=== PATIENT | female | born 1995 | race Hispanic/Latino ===

== ENCOUNTER 2019-09-28 22:14 | Emergency (ER) | payer MEDICAID, OTHER ==
[2019-09-28 22:47] LABS: Bacteria/HPF None Seen HPF (None Seen); Bilirubin Negative (Negative); Blood, Urine 2+ (Negative); Clarity Clear (Clear); Glucose, Urine (Dipstick) Normal (Negative); Leukocyte 25 Leu/uL (Negative); Mucous/LPF 1+ LPF (<2+); Nitrite Negative (Negative); Protein, Urine (Dipstick) Negative (Neg-Trace); Squamous Epithelial 0-3 HPF (0-3); Urobilinogen Normal mg/dL (Less than 2); WBC/HPF 0-3 HPF (0-3)
[2019-09-28 22:48] LABS: Pregnancy Test - Urine (BHCG) POSITIVE (Negative); Pregu Control Background? CLEAR/WHITE (CLR/WHITE); Pregu Control Bar Appear? YES (CONTROL BAR); Specific Gravity 1.023 (1.002-1.036)
[2019-09-28 23:25] LABS: #Basophils 0.1 thou/uL (0.0-0.2); #Eosinphils 0.3 thou/uL (0.0-0.7); #Lymphocytes 2.8 thou/uL (1.20-3.40); #Monocytes 0.7 thou/uL (0.11-0.59); #Neutrophils 9.1 thou/uL (1.40-6.50); %Basophils 0.7 % (0.0-1.0); %Lymphocytes 21.7 % (21.0-51.0); %Monocytes 5.5 % (0.0-10.0); %Neutrophils 70.2 % (42.0-75.0); Hemoglobin 12.1 g/dL (12.0-16.0); Mean Corpuscular HGB CONC 31.7 g/dL (32.0-36.0); Mean Corpuscular Hemoglobin 25.9 pg (27.0-31.0); Mean Corpuscular Volume 81.7 fL (78.0-98.0); Mean Platelet Volume 8.5 fL (7.4-10.4); Platelet Count 304 thou/uL (130-400); Red Blood Cell (RBC) Count 4.67 mill/uL (4.20-5.40)
--- NOTE | 2019-09-29 08:03 | ULT ---
OB AND PELVIC ULTRASOUND: COMPARISON: None. HISTORY: female with vaginal spotting. TECHNIQUE: Multiplanar, tapia scale, and color Doppler images were obtained in a transabdominal pelvic ultrasound . Spectral analysis of the Doppler waveforms and ovaries was performed. FINDINGS: There is a single live intrauterine with heart rate of 126 b.p.m. A yolk sac and brooke e are able to be seen. Toccopola-rump length of the pole is 0.49 cm which estimates gestational ag e of 6 weeks 2 days. No free fluid is seen in the pelvis. Both ovaries are normal in size and appearance and demonstrate normal internal flow. IMPRESSION: Single live intrauterine with estimated age of 6 weeks 2 days. POS: EAA
== END 2019-09-29 01:10 | disposition home or self-care (01) ==
LOC: ERS 22:14
DX: O20.0 Threatened abortion (principal); O99.351 Diseases of the nervous system complicating pregnancy, first trimester; G71.00 Muscular dystrophy, unspecified; Z3A.12 12 weeks gestation of pregnancy
CPT/HCPCS: 36415; 76856; 81003; 81015; 81025; 84702; 85025; 86900; 86901

== ENCOUNTER 2019-11-02 20:35 | Emergency (ER) | payer OTHER ==
[2019-11-02] MEDS ORDERED: Ondansetron PF 4 MG/2 ML Vial ONE (21:12)
--- NOTE | 2019-11-02 21:20 | RAD ---
PORTABLE CHEST: Date: 11-02-2019 Provided Clinical History: Fever FINDINGS: Comparison 02-09-14. Cardiac and mediastinal silhouette is within normal limits. No focal consolidation, pleural fluid, or pneumothorax apparent. IMPRESSION: No evidence for an acute cardiopulmonary process. POS: ISABEL
[2019-11-02 21:47] LABS: #Lymphocytes 0.6 thou/uL (1.20-3.40); #Monocytes 0.5 thou/uL (0.11-0.59); #Neutrophils 7.2 thou/uL (1.40-6.50); %Basophils 0.5 % (0.0-1.0); %Eosinophils 0.1 % (0.0-10.0); %Lymphocytes 6.9 % (21.0-51.0); %Monocytes 6.2 % (0.0-10.0); %Neutrophils 86.3 % (42.0-75.0); Hemoglobin 12.7 g/dL (12.0-16.0); Mean Corpuscular HGB CONC 33.7 g/dL (32.0-36.0); Mean Corpuscular Hemoglobin 26.8 pg (27.0-31.0); Mean Corpuscular Volume 79.6 fL (78.0-98.0); Mean Platelet Volume 9.4 fL (7.4-10.4); Platelet Count 246 thou/uL (130-400); RBC Distribution Width 14.1 % (11.5-14.5); Red Blood Cell (RBC) Count 4.73 mill/uL (4.20-5.40); White Blood Cell (WBC) Count 8.3 thou/uL (4.8-10.8)
[2019-11-02 21:51] LABS: Bacteria/HPF None Seen HPF (None Seen); Bilirubin Negative (Negative); Blood, Urine Negative (Negative); Clarity Clear (Clear); Glucose, Urine (Dipstick) Normal (Negative); Leukocyte 250 Leu/uL (Negative); Nitrite Negative (Negative); Protein, Urine (Dipstick) 30 mg/dL (Neg-Trace); RBC/HPF 0-3 HPF (0-3); Squamous Epithelial 0-3 HPF (0-3)
[2019-11-02] MEDS ORDERED: cefTRIAXone\\ROCEPHIN 2 GM VIAL ONE (22:13)
[2019-11-02 22:19] LABS: ALT (SGPT) 81 U/L (8-55); AST (SGOT) 115 U/L (5-34); Albumin 4.1 g/dL (3.5-5.0); Alkaline Phosphatase 58 U/L (40-110); Anion Gap 18 mmol/L (10-20); BUN (Urea Nitrogen) 4 mg/dL (7.0-18.7); Bilirubin, Total 0.2 mg/dL (0.2-1.2); Calc. Creatinine Clearance 0 mL/min (70-130); Calcium 9.7 mg/dL (7.8-10.44); Carbon Dioxide 19 mmol/L (22-29); Chloride 102 mmol/L (98-107); Estimated GFR-MDRD Greater than 90; Globulin 3.9 g/dL (2.4-3.5); Glucose 91 mg/dL (70-105); Lipase 15 U/L (8-78); Potassium 4.2 mmol/L (3.5-5.1); Sodium 135 mmol/L (136-145)
[2019-11-03 14:02] LABS: SARS-CoV-2 MS2 Positive; SARS-CoV-2 N Gene Positive; SARS-CoV-2 S Gene Positive; SARS-CoV-2 orf1ab Positive
== END 2019-11-02 23:49 | disposition home or self-care (01) ==
LOC: ERS 20:35
DX: O98.511 Other viral diseases complicating pregnancy, first trimester (principal); U07.1 COVID-19; O99.281 Endocrine, nutritional and metabolic diseases complicating pregnancy, first trimester; E86.0 Dehydration; O23.41 Unspecified infection of urinary tract in pregnancy, first trimester; Z3A.10 10 weeks gestation of pregnancy
CPT/HCPCS: 71045; 80053; 81003; 81015; 83690; 85025; 87635; 93005; 96361; 96365; 96375; J0696; J2405; U0003

== ENCOUNTER 2019-11-08 13:17 | Emergency (ER) | payer OTHER ==
[2019-11-08] MEDS ORDERED: Ondansetron PF 4 MG/2 ML Vial ONE (13:24)
[2019-11-08] MEDS ORDERED: Metoclopramide HCl 10 MG/2 ML VIAL ONE (13:31)
[2019-11-08] MEDS ORDERED: diphenhydrAMINE 50 MG/ML VIAL ONE (13:31)
[2019-11-08 14:47] LABS: #Lymphocytes 1.4 thou/uL (1.20-3.40); #Monocytes 0.4 thou/uL (0.11-0.59); #Neutrophils 4.9 thou/uL (1.40-6.50); %Basophils 0.2 % (0.0-1.0); %Eosinophils 0.4 % (0.0-10.0); %Lymphocytes 20.9 % (21.0-51.0); %Monocytes 6.3 % (0.0-10.0); %Neutrophils 72.2 % (42.0-75.0); Hemoglobin 13.1 g/dL (12.0-16.0); Mean Corpuscular HGB CONC 34.9 g/dL (32.0-36.0); Mean Corpuscular Hemoglobin 27.7 pg (27.0-31.0); Mean Corpuscular Volume 79.3 fL (78.0-98.0); Mean Platelet Volume 9.1 fL (7.4-10.4); Platelet Count 246 thou/uL (130-400); RBC Distribution Width 13.8 % (11.5-14.5); Red Blood Cell (RBC) Count 4.72 mill/uL (4.20-5.40); White Blood Cell (WBC) Count 6.7 thou/uL (4.8-10.8)
[2019-11-08] MEDS ORDERED: Metoclopramide HCl 10 MG TAB ONE (15:08)
[2019-11-08 15:12] LABS: Calcium 9.5 mg/dL (7.8-10.44); Chloride 104 mmol/L (98-107); Potassium 4.2 mmol/L (3.5-5.1); Sodium 135 mmol/L (136-145)
[2019-11-08 15:13] LABS: Globulin 3.9 g/dL (2.4-3.5); Glucose 74 mg/dL (70-105); Protein, Total 7.9 g/dL (6.0-8.3)
[2019-11-08 15:14] LABS: Anion Gap 19 mmol/L (10-20); Carbon Dioxide 16 mmol/L (22-29)
[2019-11-08 15:15] LABS: Bilirubin, Total 0.3 mg/dL (0.2-1.2)
[2019-11-08 15:16] LABS: Alkaline Phosphatase 61 U/L (40-110); Calc. Creatinine Clearance 0 mL/min (70-130); Estimated GFR-MDRD Greater than 90
[2019-11-08 15:17] LABS: BUN (Urea Nitrogen) 5 mg/dL (7.0-18.7)
[2019-11-08 15:18] LABS: AST (SGOT) 88 U/L (5-34)
[2019-11-08 15:19] LABS: ALT (SGPT) 100 U/L (8-55)
[2019-11-08 15:50] LABS: Bacteria/HPF None Seen HPF (None Seen); Bilirubin Negative (Negative); Blood, Urine Negative (Negative); Clarity Clear (Clear); Glucose, Urine (Dipstick) Normal (Negative); Leukocyte 25 Leu/uL (Negative); Mucous/LPF 2+ LPF (<2+); Nitrite Negative (Negative); Protein, Urine (Dipstick) 20 mg/dL (Neg-Trace); RBC/HPF 0-3 HPF (0-3); Squamous Epithelial 0-3 HPF (0-3); Urobilinogen Normal mg/dL (Less than 2); WBC/HPF 0-3 HPF (0-3)
== END 2019-11-08 15:55 | disposition home or self-care (01) ==
LOC: ERS 13:17
DX: O98.511 Other viral diseases complicating pregnancy, first trimester (principal); U07.1 COVID-19; Z3A.11 11 weeks gestation of pregnancy
CPT/HCPCS: 36415; 80053; 81003; 81015; 85025; J1200; J2405; J2765

== ENCOUNTER 2019-11-24 14:08 | Inpatient (IN) | payer OTHER ==
[2019-11-24 15:38] LABS: Hemoglobin 14.3 g/dL (12.0-16.0); Mean Corpuscular HGB CONC 35.5 g/dL (32.0-36.0); Mean Corpuscular Hemoglobin 27.4 pg (27.0-31.0); Platelet Count 347 thou/uL (130-400); RBC Distribution Width 13.8 % (11.5-14.5); Red Blood Cell (RBC) Count 5.23 mill/uL (4.20-5.40); White Blood Cell (WBC) Count 16.2 thou/uL (4.8-10.8)
[2019-11-24 15:49] LABS: Band 5 % (5-11); Lymphocytes 5 % (21-51); MDiff Complete? YES; Monocytes 5 % (0-10); Neutrophil 85 % (42-75); Platelet Morphology Comment Appears Adequate; RBC Morphology Normal
[2019-11-24 16:02] LABS: ALT (SGPT) 276 U/L (8-55); AST (SGOT) 166 U/L (5-34); Albumin 4.4 g/dL (3.5-5.0); Alkaline Phosphatase 82 U/L (40-110); Anion Gap 23 mmol/L (10-20); BUN (Urea Nitrogen) 7 mg/dL (7.0-18.7); Bilirubin, Total 1.2 mg/dL (0.2-1.2); Calc. Creatinine Clearance 0 mL/min (70-130); Calcium 10.4 mg/dL (7.8-10.44); Carbon Dioxide 12 mmol/L (22-29); Chloride 102 mmol/L (98-107); Estimated GFR-MDRD Greater than 90; Globulin 4.6 g/dL (2.4-3.5); Glucose 132 mg/dL (70-105); Potassium 3.1 mmol/L (3.5-5.1); Sodium 134 mmol/L (136-145)
[2019-11-24 16:41] LABS: Bacteria/HPF None Seen HPF (None Seen); Bilirubin 1+ (Negative); Blood, Urine Negative (Negative); Clarity Clear (Clear); Glucose, Urine (Dipstick) Normal (Negative); Ketone, Urine Greater than 150 mg/dL (Negative); Leukocyte Negative Leu/uL (Negative); Nitrite Negative (Negative); Protein, Urine (Dipstick) 200 mg/dL (Neg-Trace); RBC/HPF 0-3 HPF (0-3); Squamous Epithelial 0-3 HPF (0-3)
--- NOTE | 2019-11-24 16:59 | ULT ---
Exam: Limited OB ultrasound HISTORY: Nausea and vomiting. COVID positive patient. COMPARISON: 11/17/2019 FINDINGS: Single intrauterine gestation. position: Transverse Placenta: Posterior. Placenta is marginal and approximates the inner cervical os. Cervix: 2.6 cm, previously measuring 4.5 cm heart tones: 173 bpm biometry: BPD 2.73 cm, 14 weeks 6 days Head circumference 10.31 cm, 14 weeks 6 days Abdominal circumference 18.74 cm, 15 weeks 0 days Femur length 1.52 cm, 14 weeks 3 days Average age by sonography is 14 weeks 5 days. Estimated Limited delivery date is 05/19/2020. Appropriat e interval growth. IMPRESSION: 1. Single gestation with heart tones 2. Average age by sonography is 14 weeks 5 days. Appropriate interval growth 3. Cervix appears to be short, measuring 2.6 cm. Placental location appear to be marginal. Short-term follow-up imaging is recommended
[2019-11-24] MEDS ORDERED: Metoclopramide HCl 10 MG/2 ML VIAL IVP PRN (17:40)
[2019-11-24] MEDS ORDERED: Ondansetron HCl/PF 8 MG in Sodium Chloride 0.9% 50 ML IVPB SCH (17:45)
[2019-11-24] MEDS ORDERED: Multivitamins, Adult 10 ML, Folic Acid 1 MG, Thiamine HCl 100 MG in Dextrose 5 %-0.45 %... IV SCH (17:45)
--- NOTE | 2019-11-24 18:24 | HP ---
TIME: The time is roughly 1745. LOCATION: Patient is in the ER currently. CHIEF COMPLAINT: Persistent nausea, vomiting, COVID positive. This is a patient of Dr. Arriaza. HISTORY OF PRESENT ILLNESS: This is a 24-year-old, G2, P1 with a history of a previous who is between 14 and 15 weeks , who was actually admitted on November 16, 2019, with what looks like similar symptoms. At that time by review of the notes, it looks like she was started on pyridoxine and doxylamine, which was added to that regimen. She was also given replacement of her potassium at that time. We also had replaced her magnesium at that time. It looks like on 11/18/2019, patient was on Zofran and Reglan and also started doxylamine and vitamin B6. She was released, but now returns back with persistent nausea and vomiting. It is important to note that she does have a history of being COVID positive on November that was here at this hospital. I was called by Jaime, the nurse practitioner in the ER, as I am currently in Labor and Delivery and cannot go see the patient. I cannot see the patient due to the active patient needs at this time here in Labor and Delivery. Patient presented now with persistent nausea, vomiting, and came for evaluation. PAST MEDICAL HISTORY: Otherwise, unremarkable, except for the COVID history. OB HISTORY: She had a in the past. ALLERGIES: NONE. PHYSICAL EXAMINATION: According to Jaime in the ER, heart rate was initially 120s but is now down to the 90s with IV hydration. Blood pressures are okay. She is afebrile. LABORATORIES: Today show white blood cell count of 16.2, which is thought to be reactive. Her sodium is 134. Her potassium was 3.1, which is a little bit low. Her creatinine is 0.6. Her AST and ALT were elevated with a 166 AST and a 276 ALT. She did have a urine done today which was a clean-catch, which showed greater than 150 ketones, negative blood, negative nitrite, and no bacteria seen. On review of her 11/16/2019 admission, her AST and ALT on 11/18/2019 were 35 AST and 70 ALT, so her liver function tests have deteriorated slightly over these last days. According to Jaime, she had an ultrasound done today in the ER, which showed no gross abnormalities and positive heart tones in the sono that showed that she was 14 weeks and 5 days, which is size appropriate. ASSESSMENT: This is a 24-year-old, G2, P1 with a previous history who is about 14 to 15 weeks who was COVID positive on November 15 with persistent hyperemesis versus COVID GI symptoms. She is in no acute distress. PLAN: 1. I have discussed the case with Dr. Arriaza and this is a direct admission to Dr. Arriaza. 2. I have ordered a repeat CBC and a repeat CMP for the morning, which will be done at the a.m. run. I have also ordered 40 mEq of K-Dur and I will her give that b.i.d. as well. I have ordered a liter of banana bag to be given to her and then after that, we will change to lactated Ringer. 3. Again, I have not seen the patient because I am in Labor and Delivery attending to other patient issues. This is a courtesy H and P and Dr. Arriaza will resume care at this time. For antinausea medication, I have given Zofran and Reglan as per orders and I will also order her doxylamine at 10 mg b.i.d. I have also ordered another CBC for the a.m. run. I believe that the white blood cell count is reactive due to the dehydration status. Job ID: [id number]
[2019-11-24] MEDS ORDERED: Pantoprazole 40 MG VIAL ONE (18:25)
[2019-11-24 18:58] LABS: HBCM Index 0.15 S/CO (0-0.79); Hep A IgM AB Non-Reactive (NonReactive); Hep A IgM S/CO 0.16 S/CO (0-0.79); Hep B Surf Ag Non-Reactive S/CO (NonReactive); Hep C IgG Ab Non-Reactive (NonReactive); Hep C Index 0.09 S/CO (0-0.79); Hepatitis B Core IgM Abs Non-Reactive (NonReactive)
[2019-11-24] MEDS: Doxylamine 25 MG TAB PO SCH (20:32)
[2019-11-25] MEDS: Lactated Ringer's 1,000 ML IV SCH ×2 (03:55)
[2019-11-25 06:16] LABS: #Eosinphils 0.2 thou/uL (0.0-0.7); #Lymphocytes 2.5 thou/uL (1.20-3.40); #Monocytes 1.4 thou/uL (0.11-0.59); #Neutrophils 7.5 thou/uL (1.40-6.50); %Basophils 0.3 % (0.0-1.0); %Eosinophils 1.4 % (0.0-10.0); %Lymphocytes 21.3 % (21.0-51.0); %Monocytes 11.7 % (0.0-10.0); %Neutrophils 65.3 % (42.0-75.0); Hemoglobin 11.6 g/dL (12.0-16.0); Mean Corpuscular Hemoglobin 27.3 pg (27.0-31.0); Mean Corpuscular Volume 77.9 fL (78.0-98.0); Mean Platelet Volume 9.4 fL (7.4-10.4); Platelet Count 259 thou/uL (130-400); RBC Distribution Width 13.7 % (11.5-14.5); Red Blood Cell (RBC) Count 4.24 mill/uL (4.20-5.40); White Blood Cell (WBC) Count 11.5 thou/uL (4.8-10.8)
[2019-11-25 06:37] LABS: ALT (SGPT) 251 U/L (8-55); AST (SGOT) 142 U/L (5-34); Albumin 3.5 g/dL (3.5-5.0); Alkaline Phosphatase 64 U/L (40-110); Anion Gap 14 mmol/L (10-20); BUN (Urea Nitrogen) 4 mg/dL (7.0-18.7); Bilirubin, Total 1.8 mg/dL (0.2-1.2); Calc. Creatinine Clearance 221 mL/min (70-130); Carbon Dioxide 15 mmol/L (22-29); Chloride 106 mmol/L (98-107); Estimated GFR-MDRD Greater than 90; Globulin 3.1 g/dL (2.4-3.5); Glucose 99 mg/dL (70-105); Potassium 2.2 mmol/L (3.5-5.1); Protein, Total 6.6 g/dL (6.0-8.3); Sodium 133 mmol/L (136-145)
--- NOTE | 2019-11-25 06:49 | PDOC.EVN ---
Event Note - Event Note Event Note: NOted K of 2.2...D/W RN Give KDur now and again this pm. Re check K at [address] [facility]
[2019-11-25] MEDS: Potassium Chloride 20 MEQ TAB PO SCH ×2 (08:05→17:08)
[2019-11-25] MEDS: Doxylamine 25 MG TAB PO SCH ×3 (08:06→21:25)
[2019-11-25] MEDS ORDERED: NS 0.9% w/ 40 MEQ KCL 1,000 ML IV SCH (08:30)
[2019-11-25] MEDS ORDERED: Potassium Chloride 10 MEQ in Premix Bag 1 BAG IVPB SCH ×3 (08:30→17:30)
[2019-11-25] MEDS ORDERED: pyridOXINE 50 MG (B6) TAB PO SCH (09:00)
[2019-11-25 11:35] LABS: Anion Gap 14 mmol/L (10-20); BUN (Urea Nitrogen) 4 mg/dL (7.0-18.7); Calc. Creatinine Clearance 225 mL/min (70-130); Calcium 9.2 mg/dL (7.8-10.44); Carbon Dioxide 16 mmol/L (22-29); Chloride 107 mmol/L (98-107); Estimated GFR-MDRD Greater than 90; Glucose 112 mg/dL (70-105); Sodium 134 mmol/L (136-145)
[2019-11-25 11:42] LABS: Potassium 2.6 mmol/L (3.5-5.1)
[2019-11-25] MEDS: Metoclopramide HCl 10 MG/2 ML VIAL IVP SCH ×2 (14:20→20:22)
[2019-11-25] MEDS: pyridOXINE 50 MG (B6) TAB PO SCH ×2 (14:22→21:25)
[2019-11-25 14:37] VITALS: BMI 38.3
--- NOTE | 2019-11-25 14:50 | ULT ---
Exam: Limited pelvic ultrasound HISTORY: Evaluate cervical length COMPARISON: 11/24/2019 FINDINGS: Single intrauterine gestation. heart tones: 141 bpm Cervical length: 3.7-3.9 cm IMPRESSION: Cervical length is 3.7-3.9 cm
[2019-11-25 16:35] LABS: Anion Gap 12 mmol/L (10-20); BUN (Urea Nitrogen) Less than 4 mg/dL (7.0-18.7); Calc. Creatinine Clearance 221 mL/min (70-130); Calcium 9.3 mg/dL (7.8-10.44); Carbon Dioxide 17 mmol/L (22-29); Chloride 108 mmol/L (98-107); Estimated GFR-MDRD Greater than 90; Glucose 124 mg/dL (70-105); Sodium 134 mmol/L (136-145)
[2019-11-25 16:41] LABS: Potassium 2.7 mmol/L (3.5-5.1)
[2019-11-25] MEDS: NS 0.9% w/ 40 MEQ KCL 1,000 ML IV SCH (17:35)
[2019-11-25 18:57] LABS: ALT (SGPT) 242 U/L (8-55); AST (SGOT) 124 U/L (5-34); Albumin 3.4 g/dL (3.5-5.0); Alkaline Phosphatase 65 U/L (40-110); Anion Gap 14 mmol/L (10-20); BUN (Urea Nitrogen) Less than 4 mg/dL (7.0-18.7); Calc. Creatinine Clearance 213 mL/min (70-130); Calcium 9.3 mg/dL (7.8-10.44); Carbon Dioxide 15 mmol/L (22-29); Chloride 108 mmol/L (98-107); Estimated GFR-MDRD Greater than 90; Globulin 3.1 g/dL (2.4-3.5); Glucose 124 mg/dL (70-105); Protein, Total 6.5 g/dL (6.0-8.3); Sodium 134 mmol/L (136-145)
[2019-11-25 19:01] LABS: Potassium 2.8 mmol/L (3.5-5.1)
[2019-11-25] MEDS: Potassium Chloride 10 MEQ in Premix Bag 1 BAG IVPB SCH (21:27)
[2019-11-26] MEDS: Potassium Chloride 10 MEQ in Premix Bag 1 BAG IVPB SCH (02:53)
[2019-11-26] MEDS: NS 0.9% w/ 40 MEQ KCL 1,000 ML IV SCH ×4 (02:54→21:46)
[2019-11-26] MEDS: Metoclopramide HCl 10 MG/2 ML VIAL IVP SCH ×2 (03:00→07:51)
[2019-11-26 06:11] LABS: ALT (SGPT) 203 U/L (8-55); AST (SGOT) 87 U/L (5-34); Albumin 3.2 g/dL (3.5-5.0); Alkaline Phosphatase 65 U/L (40-110); Anion Gap 10 mmol/L (10-20); BUN (Urea Nitrogen) Less than 4 mg/dL (7.0-18.7); Bilirubin, Total 0.5 mg/dL (0.2-1.2); Calc. Creatinine Clearance 225 mL/min (70-130); Calcium 8.9 mg/dL (7.8-10.44); Carbon Dioxide 18 mmol/L (22-29); Chloride 111 mmol/L (98-107); Estimated GFR-MDRD Greater than 90; Globulin 2.8 g/dL (2.4-3.5); Glucose 107 mg/dL (70-105); Potassium 3.3 mmol/L (3.5-5.1); Sodium 136 mmol/L (136-145)
[2019-11-26] MEDS: Potassium Chloride 20 MEQ TAB PO SCH ×2 (07:50→17:02)
[2019-11-26] MEDS: pyridOXINE 50 MG (B6) TAB PO SCH ×3 (08:41→21:47)
[2019-11-26] MEDS: Doxylamine 25 MG TAB PO SCH ×3 (08:41→21:46)
--- NOTE | 2019-11-26 20:53 | PDOC.BPN ---
- Brief Progress Note OBGYN Supervisor Instrument Repair Clarification on "Patient precautions" I was called about 15 min ago to clarify an order that this patient was to have "standard precautions" for care. She is known prior COVID POS. I placed inital admit orders for her primary physician. My admit orders did NOT state standard precautions. I requested they contact Dr arriaza to see if that request came from him as I did not order that. I will defer to Dr Arriaza's call as he is more aware of this patient's inhouse care than I am as I was just the admitting physician on his behalf.
[2019-11-27 07:46] VITALS: BP 117/62; TEMP 98.3
[2019-11-27] MEDS: NS 0.9% w/ 40 MEQ KCL 1,000 ML IV SCH (07:51)
[2019-11-27] MEDS: Potassium Chloride 20 MEQ TAB PO SCH (08:22)
[2019-11-27] MEDS: Doxylamine 25 MG TAB PO SCH (08:23)
[2019-11-27] MEDS: pyridOXINE 50 MG (B6) TAB PO SCH (08:23)
== END 2019-11-27 10:00 | disposition home health service (06) | DRG 831 ==
LOC: ERS 14:08 → 3SW 17:44 → OBSVTOIN 17:44 → 3SW 11-25 19:33
PROVIDERS: ADMIT Obstetrics & Gynecology; ATTEND Obstetrics & Gynecology
DX: O98.512 Other viral diseases complicating pregnancy, second trimester (principal); U07.1 COVID-19; Z3A.14 14 weeks gestation of pregnancy; O21.0 Mild hyperemesis gravidarum
CPT/HCPCS: 36415; 76815; 76856; 80053; 80074; 81003; 81015; 84702; 85025; 96361; 96365; 96366; 96375; C9113; J2405; J2765; J3411; J3480; J7042

== ENCOUNTER 2019-12-01 09:18 | Emergency (ER) | payer OTHER ==
[2019-12-03 14:10] LABS: SARS-CoV-2 MS2 Positive; SARS-CoV-2 N Gene Positive; SARS-CoV-2 S Gene Positive
[2019-12-03 14:31] LABS: SARS-CoV-2 orf1ab Negative
== END 2019-12-01 10:24 | disposition home or self-care (01) ==
LOC: ERS 09:18
DX: O98.519 Other viral diseases complicating pregnancy, unspecified trimester (principal); U07.1 COVID-19; O99.350 Diseases of the nervous system complicating pregnancy, unspecified trimester; G71.00 Muscular dystrophy, unspecified
CPT/HCPCS: 87635; 99283; U0003

== ENCOUNTER 2020-01-09 08:32 | Outpatient (CLI) | payer OTHER ==
--- NOTE | 2020-01-09 11:32 | ULT ---
ULTRASOUND COMPLETE GREATER THAN 14 WEEKS: HISTORY: Anatomy. FINDINGS: Single viable intrauterine fetus was noted in variable presentation. The placenta is posterior withi n approximately 1-2 cm of the internal cervical os. A followup study later in might be con sidered to evaluate for expected transmigration of the placenta from the cervical os with advancing g estation. Cervical length 5.9 cm. heart rate 138 b.p.m. Amniotic fluid within normal limits. Anatomy: Visualized brain, 4-chamber heart, 3-vessel cord, stomach, bladder, kidneys, spine, and extremi ty regions were unremarkable. Biometry: BPD 4.7 cm-20 weeks 1 day Head circumference 18.7 cm-21 weeks 1 day Abdominal circumference 16.5 cm-21 weeks 4 days Femur length 3.6 cm-21 weeks 3 days IMPRESSION: Single viable intrauterine fetus 21 weeks 1 day gestation, estimated date of delivery 05/24/2020. Est imated weight 419 gm. POS: RRE
== END 2020-01-09 08:33 | disposition home or self-care (01) ==
LOC: BICULT 08:32
PROVIDERS: ATTEND Family Medicine
DX: O09.892 Supervision of other high risk pregnancies, second trimester (principal); Z3A.21 21 weeks gestation of pregnancy
CPT/HCPCS: 76805

== ENCOUNTER 2020-03-02 17:16 | Emergency (ER) | payer OTHER | END 2020-03-02 17:55 | disposition home or self-care (01) | LOC: ERS 17:16 | DX: O99.342 Other mental disorders complicating pregnancy, second trimester (principal); Z3A.27 27 weeks gestation of pregnancy; F41.9 Anxiety disorder, unspecified; Z79.899 Other long term (current) drug therapy; W11.XXXA Fall on and from ladder, initial encounter ==

== ENCOUNTER 2020-03-02 17:59 | Day surgery (SDC) | payer OTHER ==
[2020-03-02 19:20] VITALS: BMI 41.8
[2020-03-02] MEDS ORDERED: hydrALAZINE 20 MG/ML VIAL SLOW IVP PRN (19:27)
--- NOTE | 2020-03-02 20:08 | RAD ---
XR Foot Lt 3 View STANDARD INDICATION: Fall with left foot pain COMPARISON: None. FINDINGS: Bones: There is suggested healed osteotomies versus fractures involving the calcaneus and cuboid. No acute fracture is evident. There is a suture anchor within the dorsal aspect of the navicular. Small foci of heterotopic ossification is seen within the medial soft tissues of the ankle. An access ory ossicle seen adjacent to the cuboid. There is suggested healed deformity involving the great toe metatarsal neck. Joints: Joints spaces appear preserved. Lisfranc alignment: Lisfranc alignment appears within normal limits. Soft tissues: No soft tissue injury demonstrated. No radiographic foreign body demonstrated. IMPRESSION: No acute osseous abnormality.
--- NOTE | 2020-03-03 03:29 | SS ---
DATE OF ADMISSION: 03/02/2020 DATE OF DISCHARGE: 03/02/2020 REGULAR PHYSICIAN: Vivek Arriaza MD EVALUATING PHYSICIAN: Aguilar Argueta MD CHIEF COMPLAINT: Status post fall at home. HISTORY OF PRESENT ILLNESS: Ms. Myers is a 24-year-old G2, P1-0-0-1 with an estimated date of confinement of 05/24/2020, who presents after having fallen at home while using the toilet. She states that she fell on her on her bottom and her back and denies direct abdominal contact. She denies ruptured membranes or vaginal bleeding. She endorses active movement. She was seen in the ER prior to coming up to Labor and Delivery. She is complaining of pain in her left foot. care has been with Dr. Arriaza without complications. PAST OBSTETRICAL HISTORY: Includes one section at term for cephalopelvic disproportion. PAST MEDICAL HISTORY: Includes Charcot-Deonna muscular dystrophy. 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 CURRENT MEDICATIONS: vitamins. ALLERGIES: NO KNOWN ALLERGIES. SOCIAL HISTORY: Denies tobacco, alcohol, or drug use. FAMILY HISTORY: Unremarkable. REVIEW OF SYSTEMS: Denies abdominal pain, ruptured membranes, or vaginal bleeding. Positive for left foot pain. PHYSICAL EXAMINATION: VITAL SIGNS: In triage, her vital signs are stable and she is afebrile. ABDOMEN: Soft and nontender. There is no bruising seen. heart rate tracing with extended monitoring is reassuring. There are no decelerations. No uterine contractions are seen. IMAGING DATA: X-ray of her left foot discloses no fracture. ASSESSMENT: 1. A 28th and 7th week intrauterine . 2. Reassuring testing status post fall at home. 3. No evidence of left foot fracture. PLAN: The patient will be dismissed to home. She was given precautions. She was told to ice and elevate her left foot and she could use Tylenol for whatever discomfort she has. She states that she has a followup appointment with Dr. Arriaza within the next 2 weeks. Job ID: [id number]
== END 2020-03-02 20:30 | disposition home or self-care (01) ==
LOC: L&D/OP 17:59
PROVIDERS: ATTEND Family Medicine
DX: O99.891 Other specified diseases and conditions complicating pregnancy (principal); M79.672 Pain in left foot; W18.30XA Fall on same level, unspecified, initial encounter; Y92.002 Bathroom of unspecified non-institutional (private) residence as the place of occurrence of the external cause

== ENCOUNTER 2020-04-18 00:43 | Inpatient (IN) | payer OTHER ==
[2020-04-18 01:53] VITALS: BMI 42.8
[2020-04-18] MEDS ORDERED: hydrALAZINE 20 MG/ML VIAL SLOW IVP PRN (02:38)
[2020-04-18] MEDS ORDERED: Acetaminophen 500 MG TAB PO SCH (02:45)
--- NOTE | 2020-04-18 02:49 | PDOC.LDHP ---
Labor and Delivery H&P Chief complaint: other (Fall) HPI: 25yo @ 34.6wks presents following a fall at home. PMHx of muscular dystrophy with related recurrent falls. Tonight around midnight she was walking and her legs gave out causing her to fall to her bottom. She crawled to the couch and with assistance of her then walked to the bedroom, on her way falling again but this time to her right side. She denies any abdominal trauma from either occurrence. After the fall she noted severe pain anytime she moved located about her pubic bone - prompting her to seek evaluation. Since the occurrence the patient denies any vaginal bleeding, LOF, decreased movement, abdominal pain, or contractions. Primary OB: Dr. Arriaza Current gestational age (weeks): 34 (6) Grav: 2 Para: 1 OB History Details: Previous cesarian delivery - reports due to failure to progress Current complications: none Abnormal US findings: No Past Medical History: Muscular dystrophy Current medications: pre-colby vitamins Previous surgical history: low tranverse CS, other (esophageal atresia revision (), bilateral leg surgeries (child)) Allergies/Adverse Reactions: Allergies Allergy/AdvReac Type Severity Reaction Status Date / Time No Known Allergies Allergy Verified 04/18/20 01:47 Social history: none - Physical Exam Vital signs reviewed and normal: yes General: NAD Heart: RRR Lungs: nonlabored breathing Abdomen: other (no abdominal tenderness, tenderness to touch noted over pubic bone and rami) Extremeties: trace edema (non pitting) FHT: category 1, variability present [place] contractions every: Irregular, >10 minutes - Plan -: Fall in - 3rd trimester - no abdominal trauma - reassuring FHT, Cat 1, reactive - no specific abdominal pain, pubic pain likely musculoskeletal in nature - no signs of abruption Elevated blood pressures - 1 severe range pressure immediately after getting into bed with multiple subsequent elevated pressures in non-severe range - denies any severe feature symptoms - no hx of BP problems during or outside of - will get pre E labs Plan: Will give tylenol for pain - likely musculoskeletal in nature due to its relation to movement and palpation. With repeated elevated blood pressures will get CBC, CMP, urine prot/cr and monitor serial BP's for the next several hours.
[2020-04-18 03:41] LABS: #Eosinphils 0.1 thou/uL (0.0-0.7); #Lymphocytes 2.1 thou/uL (1.20-3.40); #Monocytes 0.6 thou/uL (0.11-0.59); #Neutrophils 9.6 thou/uL (1.40-6.50); %Basophils 0.3 % (0.0-1.0); %Monocytes 4.7 % (0.0-10.0); Hemoglobin 11.1 g/dL (12.0-16.0); Mean Corpuscular HGB CONC 33.6 g/dL (32.0-36.0); Mean Corpuscular Hemoglobin 26.7 pg (27.0-31.0); Mean Corpuscular Volume 79.7 fL (78.0-98.0); Platelet Count 237 thou/uL (130-400); RBC Distribution Width 16.6 % (11.5-14.5); Red Blood Cell (RBC) Count 4.16 mill/uL (4.20-5.40); White Blood Cell (WBC) Count 12.5 thou/uL (4.8-10.8)
[2020-04-18 03:56] LABS: Creatinine, Urine 99.42 mg/dL (47-110)
[2020-04-18 04:00] LABS: ALT (SGPT) 10 U/L (8-55); AST (SGOT) 20 U/L (5-34); Albumin 3.1 g/dL (3.5-5.0); Alkaline Phosphatase 137 U/L (40-110); Anion Gap 20 mmol/L (10-20); BUN (Urea Nitrogen) 11 mg/dL (7.0-18.7); Bilirubin, Total 0.2 mg/dL (0.2-1.2); Calc. Creatinine Clearance 227 mL/min (70-130); Calcium 9.4 mg/dL (7.8-10.44); Carbon Dioxide 17 mmol/L (22-29); Chloride 108 mmol/L (98-107); Globulin 3.3 g/dL (2.4-3.5); Glucose 101 mg/dL (70-105); Potassium 4.7 mmol/L (3.5-5.1); Protein, Total 6.4 g/dL (6.0-8.3); Sodium 140 mmol/L (136-145)
[2020-04-18] MEDS ORDERED: Promethazine HCl 25 MG/ML VIAL IM PRN (06:33)
[2020-04-18] MEDS ORDERED: Ondansetron PF 4 MG/2 ML Vial IVP PRN (06:33)
[2020-04-18] MEDS: Betamet Acet/Betamet Na Ph 30 MG/5 ML VIAL IM SCH (07:45)
[2020-04-18] MEDS ORDERED: Calcium Gluc 4.6 MEQ/10 ML (100 MG/ML) SLOW IVP PRN (08:26)
[2020-04-18] MEDS ORDERED: Labetalol HCl 100 MG/20 ML VIAL SLOW IVP SCH (08:30)
[2020-04-18] MEDS ORDERED: Magnesium Sulfate 20 GM/WATER 500 ML BAG IVPB SCH (08:30)
[2020-04-18] MEDS: Magnesium Sulfate 20 gm/500 ml 20 GM/500 ML BAG IVPB SCH ×2 (08:49→16:22)
--- NOTE | 2020-04-18 09:21 | PDOC.EVN ---
Event Note - Event Note Event Note: Received report from Dr. Olivares. 25 yo multip withj prev. C/S now 34+ weeks with elevated BPs and significant proteinuria. BMX ordered, 1st dose given. 24 * urine started. MgS04 ordered for BPs, Apresoline given. Will observe closely.
[2020-04-18] MEDS: Acetaminophen 500 MG TAB PO PRN ×2 (14:23→21:35)
--- NOTE | 2020-04-18 16:19 | ULT ---
LIMITED OB ULTRASOUND: HISTORY: Evaluate for growth, presentation amniotic fluid index. TECHNIQUE: Limited imaging of the gravid uterus performed. FINDINGS: heart tones: 112 bpm biometry: BPD 8.65 cm, 34 weeks 6 days Head circumference 30.63 cm, 34 weeks 1 day Abdominal circumference 30.97 cm, 34 weeks 6 days Femur length 6.78 cm, 34 weeks 6 days Average age by sonography is 34 weeks 1 day weight: 2516 g +/- 372 g position: Vertex Amniotic fluid index: 10.7 cm IMPRESSION: 1. Single gestation. Vertex presentation. 2. Amniotic fluid index is 10.7 cm 3. Estimated weight is 2516 g. 4. Average age by sonography is 34 weeks 1 day. Transcribed Date/Time: 04/18/2020 4:21 PM
[2020-04-18 18:07] LABS: SARS-CoV-2 MS2 Positive; SARS-CoV-2 N Gene Negative; SARS-CoV-2 S Gene Negative; SARS-CoV-2 by NAA Not Detected (NotDetected); SARS-CoV-2 orf1ab Negative
[2020-04-18 18:33] LABS: #Lymphocytes 1.3 thou/uL (1.20-3.40); #Monocytes 0.2 thou/uL (0.11-0.59); #Neutrophils 12.6 thou/uL (1.40-6.50); %Basophils 0.2 % (0.0-1.0); %Eosinophils 0.2 % (0.0-10.0); %Lymphocytes 8.9 % (21.0-51.0); %Monocytes 1.5 % (0.0-10.0); %Neutrophils 89.3 % (42.0-75.0); Hemoglobin 11.1 g/dL (12.0-16.0); Mean Corpuscular HGB CONC 33.2 g/dL (32.0-36.0); Mean Corpuscular Hemoglobin 26.8 pg (27.0-31.0); Mean Corpuscular Volume 80.7 fL (78.0-98.0); Mean Platelet Volume 9.8 fL (7.4-10.4); Platelet Count 259 thou/uL (130-400); Red Blood Cell (RBC) Count 4.15 mill/uL (4.20-5.40); White Blood Cell (WBC) Count 14.1 thou/uL (4.8-10.8)
[2020-04-18 18:55] LABS: ALT (SGPT) 8 U/L (8-55); AST (SGOT) 14 U/L (5-34); Alkaline Phosphatase 125 U/L (40-110); Anion Gap 19 mmol/L (10-20); BUN (Urea Nitrogen) 8 mg/dL (7.0-18.7); Bilirubin, Total 0.3 mg/dL (0.2-1.2); Calc. Creatinine Clearance 264 mL/min (70-130); Calcium 8.3 mg/dL (7.8-10.44); Carbon Dioxide 14 mmol/L (22-29); Chloride 104 mmol/L (98-107); Globulin 3.4 g/dL (2.4-3.5); Glucose 91 mg/dL (70-105); Potassium 4.3 mmol/L (3.5-5.1); Protein, Total 6.4 g/dL (6.0-8.3); Sodium 133 mmol/L (136-145)
[2020-04-19] MEDS: Magnesium Sulfate 20 gm/500 ml 20 GM/500 ML BAG IVPB SCH ×3 (02:10→21:10)
[2020-04-19] MEDS ORDERED: Fentanyl 4 mcg/Bup 0.1% Cadd 100 ML in Premix Bag 1 BAG EPIDURAL SCH (04:15)
[2020-04-19] MEDS: Betamet Acet/Betamet Na Ph 30 MG/5 ML VIAL IM SCH (08:27)
[2020-04-19 12:42] LABS: Urine Total Volume 2350 mL (600-1600)
[2020-04-19 13:21] LABS: Protein - 24 Hr 4254 mg/24 hr (Less than 300); Protein, Urine 181 mg/dL (1-14)
[2020-04-19] MEDS ORDERED: Bicitra 30 ML UDCUP ONE (16:13)
[2020-04-19] MEDS ORDERED: Bicitra 30 ML UDCUP PO PRN (16:20)
[2020-04-19] MEDS ORDERED: Famotidine/PF 20 mg/2ml Vial SLOW IVP PRN (16:20)
[2020-04-19] MEDS ORDERED: Morphine PF 10 MG/10 ML VIAL ONE (16:25)
[2020-04-19] MEDS ORDERED: Ketorolac Tromethamine 30 MG/ML VIAL ONE (16:26)
[2020-04-19] MEDS ORDERED: ePHEDrine 50 MG/ML VIAL ONE (16:26)
[2020-04-19] MEDS ORDERED: PHENYLEPHRINE-NS 100 MCG/ML 10 ML SYRINGE ONE ×2 (16:26→17:11)
[2020-04-19] MEDS ORDERED: Oxytocin 10 UNITS/ML VIAL ONE ×2 (16:26→17:11)
[2020-04-19] MEDS ORDERED: Ondansetron PF 4 MG/2 ML Vial ONE (16:26)
[2020-04-19] MEDS ORDERED: CEFAZOLIN 2 GM in Premix Bag 1 BAG IVPB SCH (16:30)
[2020-04-19] MEDS ORDERED: Carboprost 250 MCG/ML AMP ONE (17:10)
[2020-04-19] MEDS ORDERED: Misoprostol 200 MCG TAB ONE (17:12)
[2020-04-19] MEDS ORDERED: Ondansetron PF 4 MG/2 ML Vial IVP PRN ×2 (17:29→20:26)
[2020-04-19] MEDS ORDERED: Ketorolac Tromethamine 30 MG/ML VIAL IVP PRN (17:29)
[2020-04-19] MEDS ORDERED: Promethazine HCl 25 MG/ML VIAL IM PRN ×2 (17:29→20:26)
[2020-04-19] MEDS ORDERED: L&D-Morphine 4 MG/ML VIAL SLOW IVP PRN (17:29)
[2020-04-19] MEDS ORDERED: Promethazine HCl 25 MG SUPP PR PRN (17:29)
[2020-04-19] MEDS ORDERED: Meperidine HCl/PF 25 MG/ML VIAL SLOW IVP PRN (17:29)
[2020-04-19] MEDS ORDERED: Naloxone HCl 0.4 mg/ml Vial IV PRN (17:29)
[2020-04-19] MEDS ORDERED: diphenhydrAMINE 50 MG/ML VIAL IVP PRN (17:29)
[2020-04-19] MEDS ORDERED: Naloxone HCl 0.4 mg/ml Vial IVP PRN ×2 (17:29)
[2020-04-19] MEDS ORDERED: HYDROmorphone 2 MG/ML VIAL SLOW IVP PRN (17:29)
[2020-04-19] MEDS ORDERED: Ondansetron HCl/PF 4 MG/2 ML Vial IVP PRN (17:29)
[2020-04-19] MEDS ORDERED: Communication Order-Pharmacy FS SCH (17:30)
[2020-04-19] MEDS ORDERED: Ketorolac Tromethamine 30 MG/ML VIAL IVP SCH (17:30)
--- NOTE | 2020-04-19 18:00 | PDOC.OPDEL ---
OB Operative/Delivery Note - Additional Findings/Plan Compilations/Other Findings: Date of Procedure: 04/19/2020 Primary Surgeon: Dr. Vivek Arriaza Delivery Consultant Surgeon: Dr. Samson Nunez Procedure: Repeat low transverse caesarean section Preoperative Diagnosis: 1) Repeat 2) Preeclampsia with severe feature 3) Gestation at 35 weeks Postoperative Diagnosis: 1) same as above Anesthesia: spinal Indications: The patient is a 25 year old G2, P1 female at 35.0 weeks gestation who presented to L&D following a fall, found to have elevated BP with positive urine prot/cr ratio meeting criteria for preeclampsia with subsequent severe range pressures requiring Mg and antihypertensives. Status post betamethasone x2. Procedure in Detail: After risks, benefits, and alternatives were explained to the patient, she gave informed consent. Pre-operative antibiotics included Cefazolin 2 gram IV. The patient was taken to the operating room and spinal anesthesia was initiated. She was placed in the supine position with a left tilt and prepped and draped in usual sterile fashion. A Pfannenstiel incision was made with a scalpel and carried down to the level of the fascia which was sharply nicked. The fascial cut was extended bilaterally with [place] sissors. The inferior and superior edges of the cut fascial edges were elevated with Toby clamps and the underlying rectus muscles were sharply and bluntly dissected free. The recti were divided digitally and retracted manually. The peritoneum was entered bluntly and retracted manually. Bladder blade was placed. A low transverse score was made with the scalpel and the uterus was entered in the midline with the scalpel. Clear fluid was seen. The hysterotomy was extended manually. The infant was noted to be vertex and was easily delivered by fundal pressure. Cord clamped and cut and grossly normal female infant was handed to waiting nurse. Cord blood was obtained. Placenta was manually extracted, found to be intact with 3 vessel cord and discarded. The uterus was externalized and the endometrium was curetted with a dry lap. Bladder blade was replaced and the uterus was closed with a running locking #1 monocryl suture. A small amount of oozing was occuring from the right lateral aspect of the incision that was oversewed with a figure eight stitch. Following this hemostasis was noted. A layer of seprafilm was placed along the incision and anterior aspect of the uterus. The abdomen was irrigated with saline and suctioned free of clots. The uterus was internalized and the hysterotomy was again noted to be hemostatic. The fascia was closed with a running non-locking 0-PDS suture. The peritoneum was closed with a loose running 3-0 vircyl. The subcutaneous tissue was irrigated and approximated using interrupted 2-0 plain sutures. The skin was approximated with jose and a pressure dressing was placed. All counts were correct. The patient tolerated the procedure well and was taken to the recovery room in stable condition. Quantified Blood Loss: 460 ml Complications: None Specimens: Cord blood sent to lab for blood type Findings: Grossly normal female infant with Apgars of 7 and 9. Grossly normal placenta with 3 vessel cord discarded. Drains: Chopra to gravity draining clear urine
[2020-04-19] MEDS ORDERED: Carboprost 250 MCG/ML AMP IM SCH (19:00)
[2020-04-19] MEDS ORDERED: Misoprostol 200 MCG TAB PR SCH (19:00)
[2020-04-19] MEDS ORDERED: Lanolin Ointment 7 GM TUBE TOP PRN (20:26)
[2020-04-19] MEDS ORDERED: Bisacodyl 10 MG SUPP PR PRN (20:26)
[2020-04-19] MEDS ORDERED: Meperidine HCl/PF 25 MG/ML VIAL IM PRN (20:26)
[2020-04-19] MEDS ORDERED: Calcium Gluconate 4.6 MEQ in Sodium Chloride 0.9% 100 ML IVPB PRN (20:26)
[2020-04-19] MEDS ORDERED: diphenhydrAMINE 25 MG CAP PO PRN (20:26)
[2020-04-19] MEDS ORDERED: NS / Oxytocin 40 units/1000ml 1,000 ML IV SCH (20:26)
[2020-04-19] MEDS: Ferrous Sulfate 325 MG TAB PO SCH (22:59)
[2020-04-19] MEDS: Docusate Calcium (SURFAK) 240 MG CAP PO SCH (22:59)
[2020-04-19] MEDS: Ketorolac Tromethamine 30 MG/ML VIAL IVP SCH (23:00)
[2020-04-20] MEDS: Ketorolac Tromethamine 30 MG/ML VIAL IVP SCH ×3 (05:38→17:50)
[2020-04-20] MEDS: hydrALAZINE 20 MG/ML VIAL SLOW IVP SCH (07:47)
[2020-04-20] MEDS ORDERED: Adacel (T-DAP) 0.5 ML SYRINGE IM ONE (09:00)
[2020-04-20] MEDS: Docusate Calcium (SURFAK) 240 MG CAP PO SCH ×2 (09:17→21:39)
[2020-04-20] MEDS: Prenatal Vitamin 1 TAB PO SCH (09:17)
[2020-04-20] MEDS: Ferrous Sulfate 325 MG TAB PO SCH ×2 (09:18→21:39)
[2020-04-20] MEDS: Simethicone Chewable 80 MG TAB PO PRN (11:33)
[2020-04-20 14:02] LABS: Hemoglobin 9.1 g/dL (12.0-16.0); Mean Corpuscular Hemoglobin 26.5 pg (27.0-31.0); Mean Corpuscular Volume 80.1 fL (78.0-98.0); Mean Platelet Volume 9.1 fL (7.4-10.4); Platelet Count 231 thou/uL (130-400); RBC Distribution Width 17.3 % (11.5-14.5); Red Blood Cell (RBC) Count 3.46 mill/uL (4.20-5.40); White Blood Cell (WBC) Count 12.5 thou/uL (4.8-10.8)
[2020-04-20] MEDS: Magnesium Sulfate 20 gm/500 ml 20 GM/500 ML BAG IVPB SCH (15:29)
[2020-04-20] MEDS: HYDROcodone/Acetaminophen 5/325 mg Tablet PO PRN (18:58)
[2020-04-20] MEDS: Ibuprofen 800 MG TAB PO SCH (23:26)
[2020-04-21] MEDS: HYDROcodone/Acetaminophen 5/325 mg Tablet PO PRN ×5 (02:36→23:54)
[2020-04-21] MEDS: Docusate Calcium (SURFAK) 240 MG CAP PO SCH ×2 (09:09→21:34)
[2020-04-21] MEDS: Ferrous Sulfate 325 MG TAB PO SCH ×2 (09:09→21:34)
[2020-04-21] MEDS: Prenatal Vitamin 1 TAB PO SCH (09:09)
[2020-04-21] MEDS: Simethicone Chewable 80 MG TAB PO PRN ×2 (09:09→18:17)
[2020-04-21] MEDS: Ibuprofen 800 MG TAB PO SCH ×2 (09:09→17:29)
[2020-04-21] MEDS ORDERED: Sodium Chloride 0.9% 10 ML ONE (10:48)
[2020-04-22] MEDS: HYDROcodone/Acetaminophen 5/325 mg Tablet PO PRN (05:06)
[2020-04-22] MEDS ORDERED: Ibuprofen 800 MG TAB PO SCH (06:00)
[2020-04-22 08:45] VITALS: BP 137/81; TEMP 98.1
[2020-04-22] MEDS: Docusate Calcium (SURFAK) 240 MG CAP PO SCH (09:43)
[2020-04-22] MEDS: Ferrous Sulfate 325 MG TAB PO SCH (09:43)
[2020-04-22] MEDS: Prenatal Vitamin 1 TAB PO SCH (09:43)
== END 2020-04-22 14:10 | disposition home or self-care (01) | DRG 788 ==
LOC: L&D/OP 00:43 → ERS 00:43 → EDSTATUS 01:09 → L&D/OP 01:34 → L&D 06:33 → OBSVTOIN 06:33 → 3SW 04-20 18:29
PROVIDERS: ADMIT Family Medicine; ATTEND Family Medicine
PROC: 10D00Z1 Extraction of Products of Conception, Low, Open Approach (ICD-10-PCS; principal; 2020-04-19)
DX: O14.14 Severe pre-eclampsia complicating childbirth (principal); O34.219 Maternal care for unspecified type scar from previous cesarean delivery; Z20.828 Contact with and (suspected) exposure to other viral communicable diseases; Z3A.34 34 weeks gestation of pregnancy; Z37.0 Single live birth
CPT/HCPCS: 36415; 51701; 51702; 76815; 80053; 81003; 82570; 83735; 84156; 85025; 85027; 86850; 86900; 86901; 87635; 88307; 96372; 99285; G0378; J0360; J0690; J0702; J1885; J2270; J2405; J3475; J3490; U0003

== ENCOUNTER 2020-05-06 22:34 | Emergency (ER) | payer OTHER | END 2020-05-06 23:08 | disposition home or self-care (01) | LOC: ERS 22:34 | DX: T81.31XA Disruption of external operation (surgical) wound, not elsewhere classified, initial encounter (principal) | CPT/HCPCS: 99283 ==

== ENCOUNTER 2021-11-02 09:28 | Outpatient (CLI) | payer OTHER | END 2021-11-02 09:29 | disposition home or self-care (01) | LOC: BICULT 09:28 | PROVIDERS: ATTEND Family Medicine | DX: O09.892 Supervision of other high risk pregnancies, second trimester (principal); Z3A.21 21 weeks gestation of pregnancy | CPT/HCPCS: 76805 ==